=== PATIENT | male | born 1935 | race Caucasian/White ===

== ENCOUNTER 2019-12-11 07:20 | Emergency (ER) | payer MEDICARE ==
[2019-12-11] MEDS ORDERED: Lidocaine 1% (PF) 30 ML VIAL ONE (07:48)
[2019-12-11] MEDS ORDERED: Adacel (T-DAP) 0.5 ML SYRINGE ONE (08:00)
[2019-12-11] MEDS ORDERED: Bacitracin 1 PK ONE (08:35)
== END 2019-12-11 08:50 | disposition home or self-care (01) ==
LOC: NAV ERS 07:20
DX: S61.451A Open bite of right hand, initial encounter (principal); S61.411A Laceration without foreign body of right hand, initial encounter; Z87.891 Personal history of nicotine dependence; I10 Essential (primary) hypertension; G20 Parkinson's disease; Z79.899 Other long term (current) drug therapy; Z23 Encounter for immunization; W54.0XXA Bitten by dog, initial encounter
CPT/HCPCS: 12032; 90471; 90715; J2001